=== PATIENT | male | born 1955 | race Two or more races ===

== ENCOUNTER 2019-01-14 16:42 | Emergency (ER) | payer BC ==
[~2019-01-14] VITALS: Ht 170.2 cm; Wt 78.0 kg
[2019-01-14] MEDS ORDERED: HYDROCODONE/ACETAMINOPHEN 5/325MG TABLET PO ONE (17:45)
[2019-01-14] MEDS ORDERED: BACITRACIN ZINC OINT UDPKT TOP ONE (17:45)
[2019-01-14] MEDS ORDERED: KETOROLAC 30MG/ML VIAL IM ONE (17:45)
[2019-01-14] MEDS ORDERED: LIDOCAINE HCL/PF 1% 10 MG/ML 5ML VIAL IJ ONE (17:45)
[2019-01-14] MEDS ORDERED: AMPICILLIN 30MG/ML SYR IV ONE (19:15)
[2019-01-14] MEDS ORDERED: CEFAZOLIN 1000MG PREMIX 50 ML IV ONE (19:15)
[2019-01-14] MEDS ORDERED: TETANUS, DIPHTHERIA, PERTUSSIS VAC/PF 0.5ML (>7YR OLD) IM ONE (19:15)
[2019-01-14 21:09] VITALS: BP 148/82
== END 2019-01-14 21:10 | disposition home or self-care (01) ==
LOC: ER 16:42
DX: S61.211A Laceration without foreign body of left index finger without damage to nail, initial encounter (principal); W11.XXXA Fall on and from ladder, initial encounter; Y93.89 Activity, other specified; Y92.89 Other specified places as the place of occurrence of the external cause; Y99.8 Other external cause status
CPT/HCPCS: 12004; 73140; 90471; 90715; 96365; 96372; 99283; J0290; J0690; J1885; J3490; Z7610